=== PATIENT | female | born 1960 | race Caucasian/White ===

== ENCOUNTER 2017-02-07 14:32 | Inpatient (IN) | payer MEDICARE, MEDICAID ==
[~2017-02-07] VITALS: Ht 167.6 cm; Wt 65.0 kg
[2017-02-07] MEDS ORDERED: LITH300C3 PO (14:48)
[2017-02-07] MEDS ORDERED: DIPH50 PO (14:48)
[2017-02-07] MEDS ORDERED: LEVO112T4 PO (14:48)
[2017-02-07] MEDS ORDERED: LITH600 PO (14:48)
[2017-02-07] MEDS ORDERED: QUET300T2 PO (14:48)
[2017-02-07] MEDS ORDERED: LURA40 PO (14:48)
[2017-02-07] MEDS ORDERED: LOVA20 PO (14:50)
[2017-02-07] MEDS ORDERED: QUET100T PO (14:50)
[2017-02-07] MEDS ORDERED: TRAM50TA4 PO (14:50)
[2017-02-07] MEDS ORDERED: RIVA20TA PO (14:51)
[2017-02-07] MEDS ORDERED: VIST50 PO (14:51)
[2017-02-07] MEDS ORDERED: AMLO-511 PO (14:51)
[2017-02-07 18:02] LABS: BASOPHILS % (AUTO) 0.3 % (0.0-2.0); EOSINOPHILS % (AUTO) 2.3 % (1.0-6.0); HEMATOCRIT 43.4 % (36-46); HEMOGLOBIN 14.5 g/dL (12.0-16.0); LYMPHOCYTES # (AUTO) 2.2 K/uL (1.0-4.8); LYMPHOCYTES % (AUTO) 15.5 % (22.0-44.0); MEAN CORPUSCULAR HEMOGLOBIN 30.2 pg (26.0-34.0); MEAN CORPUSCULAR HGB CONC 33.4 G/dL (31.0-37.0); MEAN CORPUSCULAR VOLUME 90 fL (80-100); MONOCYTES # (AUTO) 0.5 K/uL (0.1-1.0); MONOCYTES % (AUTO) 3.6 % (2.0-9.0); NEUTROPHILS # (AUTO) 11.1 K/uL (1.8-7.7); NEUTROPHILS % (AUTO) 78.3 % (40.0-70.0); PLATELET COUNT (AUTO) 227 K/uL (150-450); RED CELL DISTRIBUTION WIDTH 14.6 % (11.5-14.5); WHITE BLOOD COUNT (AUTO) 14.2 K/uL (4.5-11.0)
[2017-02-07 18:07] LABS: ANION GAP 7 mmol/L (8-16); CARBON DIOXIDE 28 mmol/L (22-29); CHLORIDE 102 mmol/L (98-107); CREATININE 1.07 mg/dL (0.60-1.30); GLOMERULAR FILTR. RATE CALC 52 mL/min (>60); POTASSIUM 4.3 mmol/L (3.5-5.1); SODIUM SERUM 137 mmol/L (136-145); UREA NITROGEN, BLOOD 19 mg/dL (7-18)
[2017-02-07 18:13] LABS: ALANINE AMINOTRANSFERASE 23 U/L (12-78); ALBUMIN 4.5 g/dL (3.4-5.0); ASPARTATE AMINOTRANSFERASE 13 U/L (15-37); BILIRUBIN,TOTAL 0.4 mg/dL (0.1-1.0); TOTAL PROTEIN, SERUM 7.6 g/dL (6.4-8.2)
[2017-02-07] MEDS ORDERED: NICOTINE 21 MG/24 HOUR PATCH TD ONE (18:30)
[2017-02-07] MEDS ORDERED: TraMADol HCL 50 MG TABLET PO ONE ×2 (19:00)
[2017-02-07] MEDS ORDERED: QUEtiapine FUMARATE 100 MG TABLET PO PRN (19:30)
[2017-02-07] MEDS: HydrOXYzine PAMOATE 25 MG CAPSULE PO SCH (21:00)
[2017-02-07] MEDS: DiphenhydrAMINE HCL 50 MG CAPSULE PO SCH (21:00)
[2017-02-07] MEDS: QUEtiapine FUMARATE 200 MG TABLET PO SCH (21:00)
[2017-02-07] MEDS ORDERED: HydrOXYzine PAMOATE 50 MG CAPSULE PO SCH (21:00)
[2017-02-07] MEDS ORDERED: LITHIUM CARBONATE 300 MG ER TABLET PO SCH (21:00)
[2017-02-07] MEDS ORDERED: INFLUENZA VIRUS VACCINE QVS 2017-18 (3YR+)/PF 60 MCG/0.5 ML SYRINGE IM ONE (22:00)
[2017-02-07] MEDS ORDERED: PNEUMOCOCCAL VACCINE POLYVALENT 0.5 ML VIAL [PPSV23] IM ONE (22:00)
[2017-02-07 22:33] VITALS: BP 125/70
[2017-02-08 06:59] VITALS: BP 127/76
[2017-02-08] MEDS ORDERED: LOPERAMIDE HCL 2 MG CAPSULE PO PRN (07:45)
[2017-02-08] MEDS ORDERED: ALBUTEROL SULFATE HFA 90 MCG/PUFF 8 GM INHALER IH PRN (07:45)
[2017-02-08] MEDS ORDERED: MAG HYDROX/AL HYDROX/SIMETH ES 30 ML SUSPENSION UDCUP PO PRN (07:45)
[2017-02-08] MEDS ORDERED: BENZOCAINE/MENTHOL LOZENGE MM PRN (07:45)
[2017-02-08] MEDS ORDERED: PETROLATUM,WHITE 71 GM JELLY TP PRN (07:45)
[2017-02-08] MEDS ORDERED: BACITRACIN 28.4 GM OINTMENT TP PRN (07:45)
[2017-02-08] MEDS ORDERED: ONDANSETRON HCL 4 MG TABLET PO PRN (07:45)
[2017-02-08] MEDS ORDERED: MAGNESIUM HYDROXIDE SUSPENSION 30 ML UDCUP PO PRN (07:45)
[2017-02-08] MEDS ORDERED: CloNIDine HCL 0.1 MG TABLET PO PRN (07:45)
[2017-02-08 08:28] VITALS: BP 108/68
[2017-02-08 08:50] VITALS: BP 115/65
[2017-02-08] MEDS: AmLODIPine BESYLATE 5 MG TABLET PO SCH (08:51)
[2017-02-08] MEDS: RIVAROXABAN 20 MG TABLET PO SCH (08:51)
[2017-02-08] MEDS: LITHIUM CARBONATE 300 MG ER TABLET PO SCH ×2 (08:52→18:39)
[2017-02-08] MEDS: HydrOXYzine PAMOATE 25 MG CAPSULE PO SCH ×4 (08:52→20:31)
[2017-02-08] MEDS ORDERED: NICOTINE 21 MG/24 HOUR PATCH TD SCH (09:00)
[2017-02-08] MEDS ORDERED: LURASIDONE 20 MG PO SCH (09:00)
[2017-02-08] MEDS: METHYL SALICYLATE/MENTHOL 120 GM CREAM TP PRN ×2 (09:01→19:52)
[2017-02-08] MEDS ORDERED: LURA20TA PO (10:57)
[2017-02-08] MEDS ORDERED: QUET200T PO (11:00)
[2017-02-08] MEDS ORDERED: HYDR-4031 PO (11:00)
[2017-02-08] MEDS: NICOTINE 21 MG/24 HOUR PATCH TD SCH (11:05)
[2017-02-08 12:33] VITALS: BP 107/64
[2017-02-08] MEDS: TraMADol HCL 50 MG TABLET PO PRN (12:33)
[2017-02-08 16:11] VITALS: BP 109/67
[2017-02-08] MEDS: LOVASTATIN 20 MG TABLET PO SCH (20:31)
[2017-02-08] MEDS: QUEtiapine FUMARATE 200 MG TABLET PO SCH (20:31)
[2017-02-08] MEDS: DiphenhydrAMINE HCL 50 MG CAPSULE PO SCH (20:31)
[2017-02-09 02:04] VITALS: BP 112/83
[2017-02-09] MEDS: ZOLPIDEM TARTRATE 10 MG TABLET PO PRN (02:15)
[2017-02-09] MEDS: TraMADol HCL 50 MG TABLET PO PRN ×2 (02:15→16:39)
[2017-02-09] MEDS: LEVOTHYROXINE SODIUM 112 MCG TABLET PO SCH (06:42)
[2017-02-09 08:40] VITALS: BP 110/75
[2017-02-09] MEDS: CYANOCOBALAMIN 500 MCG TABLET PO SCH (08:40)
[2017-02-09] MEDS: HydrOXYzine PAMOATE 25 MG CAPSULE PO SCH ×4 (08:40→20:35)
[2017-02-09] MEDS: CHOLECALCIFEROL (VIT D3) 1,000 UNITS TABLET PO SCH (08:40)
[2017-02-09] MEDS: LITHIUM CARBONATE 300 MG ER TABLET PO SCH ×2 (08:40→16:50)
[2017-02-09] MEDS: FOLIC ACID 0.4 MG TABLET PO SCH (08:40)
[2017-02-09] MEDS: NICOTINE 21 MG/24 HOUR PATCH TD SCH (08:41)
[2017-02-09] MEDS: RIVAROXABAN 20 MG TABLET PO SCH (08:41)
[2017-02-09] MEDS: AmLODIPine BESYLATE 5 MG TABLET PO SCH (08:41)
[2017-02-09] MEDS: METHYL SALICYLATE/MENTHOL 120 GM CREAM TP PRN (08:53)
[2017-02-09] MEDS ORDERED: NICOTINE 21 MG/24 HOUR PATCH TD SCH (09:00)
[2017-02-09 16:39] VITALS: BP 112/62
[2017-02-09] MEDS: DiphenhydrAMINE HCL 50 MG CAPSULE PO SCH (20:35)
[2017-02-09] MEDS: LOVASTATIN 20 MG TABLET PO SCH (20:36)
[2017-02-09] MEDS: QUEtiapine FUMARATE 200 MG TABLET PO SCH (20:36)
[2017-02-09] MEDS: ACETAMINOPHEN 325 MG TABLET PO PRN (22:14)
[2017-02-10] MEDS: ZOLPIDEM TARTRATE 10 MG TABLET PO PRN ×2 (00:03→22:18)
[2017-02-10] MEDS: TraMADol HCL 50 MG TABLET PO PRN ×2 (00:03→22:18)
[2017-02-10 00:11] VITALS: BP 115/75
[2017-02-10] MEDS: LEVOTHYROXINE SODIUM 112 MCG TABLET PO SCH (06:35)
[2017-02-10 07:54] LABS: BASOPHILS % (AUTO) 0.5 % (0.0-2.0); EOSINOPHILS % (AUTO) 2.6 % (1.0-6.0); HEMATOCRIT 39.8 % (36-46); HEMOGLOBIN 13.3 g/dL (12.0-16.0); LYMPHOCYTES # (AUTO) 2.4 K/uL (1.0-4.8); LYMPHOCYTES % (AUTO) 20.5 % (22.0-44.0); MEAN CORPUSCULAR HEMOGLOBIN 30.3 pg (26.0-34.0); MEAN CORPUSCULAR HGB CONC 33.4 G/dL (31.0-37.0); MEAN CORPUSCULAR VOLUME 91 fL (80-100); MONOCYTES # (AUTO) 0.6 K/uL (0.1-1.0); MONOCYTES % (AUTO) 5.6 % (2.0-9.0); NEUTROPHILS # (AUTO) 8.2 K/uL (1.8-7.7); NEUTROPHILS % (AUTO) 70.8 % (40.0-70.0); PLATELET COUNT (AUTO) 189 K/uL (150-450); RED BLOOD CELL COUNT(AUTO) 4.39 MIL/uL (4.00-5.20); RED CELL DISTRIBUTION WIDTH 14.3 % (11.5-14.5); WHITE BLOOD COUNT (AUTO) 11.6 K/uL (4.5-11.0)
[2017-02-10 08:12] VITALS: BP 121/85
[2017-02-10] MEDS: LITHIUM CARBONATE 300 MG ER TABLET PO SCH ×2 (08:18→16:46)
[2017-02-10] MEDS: FOLIC ACID 0.4 MG TABLET PO SCH (08:18)
[2017-02-10] MEDS: OMEGA-3/DHA/EPA/FISH OIL 1,000 MG CAPSULE PO SCH (08:18)
[2017-02-10] MEDS: HydrOXYzine PAMOATE 25 MG CAPSULE PO SCH ×4 (08:18→20:31)
[2017-02-10] MEDS: LOVASTATIN 20 MG TABLET PO SCH (08:18)
[2017-02-10] MEDS: CHOLECALCIFEROL (VIT D3) 1,000 UNITS TABLET PO SCH (08:18)
[2017-02-10] MEDS: AmLODIPine BESYLATE 5 MG TABLET PO SCH (08:18)
[2017-02-10] MEDS: CYANOCOBALAMIN 500 MCG TABLET PO SCH (08:18)
[2017-02-10] MEDS: RIVAROXABAN 20 MG TABLET PO SCH (08:18)
[2017-02-10] MEDS: NICOTINE 21 MG/24 HOUR PATCH TD SCH (08:19)
[2017-02-10] MEDS: METHYL SALICYLATE/MENTHOL 120 GM CREAM TP PRN (08:25)
[2017-02-10 16:36] VITALS: BP 123/78
[2017-02-10] MEDS: LURASIDONE HCL 60 MG PO SCH (16:45)
[2017-02-10] MEDS: QUEtiapine FUMARATE 200 MG TABLET PO SCH (20:31)
[2017-02-10] MEDS: DiphenhydrAMINE HCL 50 MG CAPSULE PO SCH (20:31)
[2017-02-10 22:15] VITALS: BP 127/71
[2017-02-11 03:40] VITALS: BP 122/75
[2017-02-11] MEDS: ACETAMINOPHEN 325 MG TABLET PO PRN (03:43)
[2017-02-11] MEDS: LEVOTHYROXINE SODIUM 112 MCG TABLET PO SCH (06:23)
[2017-02-11] MEDS: LURASIDONE HCL 60 MG PO SCH ×2 (06:38→16:30)
[2017-02-11 08:09] VITALS: BP 110/64
[2017-02-11] MEDS: RIVAROXABAN 20 MG TABLET PO SCH (08:36)
[2017-02-11] MEDS: OMEGA-3/DHA/EPA/FISH OIL 1,000 MG CAPSULE PO SCH (08:36)
[2017-02-11] MEDS: NICOTINE 21 MG/24 HOUR PATCH TD SCH (08:37)
[2017-02-11] MEDS: CHOLECALCIFEROL (VIT D3) 1,000 UNITS TABLET PO SCH (08:37)
[2017-02-11] MEDS: HydrOXYzine PAMOATE 25 MG CAPSULE PO SCH ×4 (08:37→20:32)
[2017-02-11] MEDS: LITHIUM CARBONATE 300 MG ER TABLET PO SCH ×2 (08:37→16:30)
[2017-02-11] MEDS: LOVASTATIN 20 MG TABLET PO SCH (08:37)
[2017-02-11] MEDS: FOLIC ACID 0.4 MG TABLET PO SCH (08:37)
[2017-02-11] MEDS: AmLODIPine BESYLATE 5 MG TABLET PO SCH (08:37)
[2017-02-11] MEDS: METHYL SALICYLATE/MENTHOL 120 GM CREAM TP PRN ×2 (08:53→20:29)
[2017-02-11] MEDS: CYANOCOBALAMIN 500 MCG TABLET PO SCH (12:25)
[2017-02-11 12:31] VITALS: BP 116/74
[2017-02-11] MEDS: TraMADol HCL 50 MG TABLET PO PRN ×2 (12:31→18:55)
[2017-02-11] MEDS ORDERED: LITHIUM CARBONATE 300 MG ER TABLET PO SCH (14:00)
[2017-02-11 16:04] VITALS: BP 108/61
[2017-02-11 18:55] VITALS: BP 114/67
[2017-02-11] MEDS: DiphenhydrAMINE HCL 50 MG CAPSULE PO SCH (20:33)
[2017-02-11] MEDS: QUEtiapine FUMARATE 200 MG TABLET PO SCH (20:33)
[2017-02-11] MEDS: ZOLPIDEM TARTRATE 10 MG TABLET PO PRN (22:52)
[2017-02-12 00:06] VITALS: BP 107/77
[2017-02-12] MEDS: ACETAMINOPHEN 325 MG TABLET PO PRN (00:06)
[2017-02-12] MEDS: LEVOTHYROXINE SODIUM 112 MCG TABLET PO SCH (06:37)
[2017-02-12] MEDS: LURASIDONE HCL 60 MG PO SCH ×2 (07:04→16:37)
[2017-02-12 08:35] VITALS: BP 110/69
[2017-02-12] MEDS: LOVASTATIN 20 MG TABLET PO SCH (08:36)
[2017-02-12] MEDS: AmLODIPine BESYLATE 5 MG TABLET PO SCH (08:36)
[2017-02-12] MEDS: LITHIUM CARBONATE 300 MG ER TABLET PO SCH ×2 (08:36→16:38)
[2017-02-12] MEDS: RIVAROXABAN 20 MG TABLET PO SCH (08:36)
[2017-02-12] MEDS: FOLIC ACID 0.4 MG TABLET PO SCH (08:36)
[2017-02-12] MEDS: OMEGA-3/DHA/EPA/FISH OIL 1,000 MG CAPSULE PO SCH (08:36)
[2017-02-12] MEDS: HydrOXYzine PAMOATE 25 MG CAPSULE PO SCH ×4 (08:37→20:37)
[2017-02-12] MEDS: NICOTINE 21 MG/24 HOUR PATCH TD SCH (08:37)
[2017-02-12] MEDS: CHOLECALCIFEROL (VIT D3) 1,000 UNITS TABLET PO SCH (08:37)
[2017-02-12] MEDS: CYANOCOBALAMIN 500 MCG TABLET PO SCH (08:37)
[2017-02-12 08:42] VITALS: BP 113/58
[2017-02-12] MEDS: METHYL SALICYLATE/MENTHOL 120 GM CREAM TP PRN (08:46)
[2017-02-12] MEDS: TraMADol HCL 50 MG TABLET PO PRN ×2 (09:48→21:41)
[2017-02-12 16:01] VITALS: BP 136/86
[2017-02-12] MEDS: QUEtiapine FUMARATE 200 MG TABLET PO SCH (20:37)
[2017-02-12] MEDS: DiphenhydrAMINE HCL 50 MG CAPSULE PO SCH (20:37)
[2017-02-12 21:42] VITALS: BP 125/76
[2017-02-13 00:10] VITALS: BP 125/75
[2017-02-13] MEDS: ZOLPIDEM TARTRATE 10 MG TABLET PO PRN (00:18)
[2017-02-13] MEDS: LEVOTHYROXINE SODIUM 112 MCG TABLET PO SCH (06:14)
[2017-02-13] MEDS: LURASIDONE HCL 60 MG PO SCH (06:15)
[2017-02-13 07:20] VITALS: BP 125/75
[2017-02-13] MEDS: TraMADol HCL 50 MG TABLET PO PRN (07:24)
[2017-02-13] MEDS: LOVASTATIN 20 MG TABLET PO SCH (08:36)
[2017-02-13] MEDS: HydrOXYzine PAMOATE 25 MG CAPSULE PO SCH (08:37)
[2017-02-13] MEDS ORDERED: NICO-802 TD (08:37)
[2017-02-13] MEDS: CHOLECALCIFEROL (VIT D3) 1,000 UNITS TABLET PO SCH (08:37)
[2017-02-13] MEDS: FOLIC ACID 0.4 MG TABLET PO SCH (08:37)
[2017-02-13] MEDS ORDERED: FOLI0.4T4 PO (08:37)
[2017-02-13] MEDS ORDERED: LURA40 PO (08:37)
[2017-02-13] MEDS: LITHIUM CARBONATE 300 MG ER TABLET PO SCH (08:37)
[2017-02-13] MEDS: OMEGA-3/DHA/EPA/FISH OIL 1,000 MG CAPSULE PO SCH (08:37)
[2017-02-13] MEDS ORDERED: OMEG-135 PO (08:37)
[2017-02-13] MEDS: CYANOCOBALAMIN 500 MCG TABLET PO SCH (08:37)
[2017-02-13] MEDS: AmLODIPine BESYLATE 5 MG TABLET PO SCH (08:37)
[2017-02-13] MEDS: NICOTINE 21 MG/24 HOUR PATCH TD SCH (08:38)
[2017-02-13 08:46] VITALS: BP 134/84
[2017-02-13] MEDS ORDERED: RIVAROXABAN 20 MG TABLET PO SCH (17:00)
== END 2017-02-13 09:30 | disposition home or self-care (01) | DRG 885 ==
LOC: EMS 14:34 → B2X 19:55
DX: F31.4 Bipolar disorder, current episode depressed, severe, without psychotic features (principal); R45.851 Suicidal ideations; D72.829 Elevated white blood cell count, unspecified; F43.10 Post-traumatic stress disorder, unspecified; I10 Essential (primary) hypertension; Z28.21 Immunization not carried out because of patient refusal; Z88.2 Allergy status to sulfonamides; Z88.8 Allergy status to other drugs, medicaments and biological substances; E03.9 Hypothyroidism, unspecified; E78.5 Hyperlipidemia, unspecified; F17.200 Nicotine dependence, unspecified, uncomplicated; J44.9 Chronic obstructive pulmonary disease, unspecified; K21.9 Gastro-esophageal reflux disease without esophagitis; K59.00 Constipation, unspecified; M19.90 Unspecified osteoarthritis, unspecified site; Z79.899 Other long term (current) drug therapy; Z91.5 Personal history of self-harm; F12.90 Cannabis use, unspecified, uncomplicated; M54.9 Dorsalgia, unspecified; Z71.6 Tobacco abuse counseling; F60.9 Personality disorder, unspecified; E55.9 Vitamin D deficiency, unspecified
CPT/HCPCS: 82306; 84443; 87081; 99285; G0480